=== PATIENT | male | born 1955 | race Caucasian/White ===

== ENCOUNTER 2020-07-21 10:29 | Outpatient (CLI) | payer OTHER, SELFPAY ==
--- NOTE | ~2020-07-21 | XR_ITS ---
EXAMINATION: XR knee RT min 4V DATE: 07/21/2020 10:52 INDICATION: Right knee pain. TECHNIQUE: 4 views of right knee were obtained. COMPARISON: None. FINDINGS: Bone alignment is normal. No fracture. There is mild tricompartmental osteoarthritis charac terized by tiny marginal osteophytes. There is a moderate-sized knee joint effusion. IMPRESSION: 1. Mild right knee osteoarthritis. 2. Moderate-sized right knee joint effusion. Reviewed, dictated and finalized at location B.
--- NOTE | ~2020-07-21 | XR_ITS ---
EXAMINATION: XR ankle RT min 3V DATE: 07/21/2020 10:52 INDICATION: Right ankle pain. TECHNIQUE: 4 views of right ankle were obtained. COMPARISON: None. FINDINGS: Bone alignment is normal. No fracture. Joint spaces are normal. IMPRESSION: 1. Normal right ankle. Reviewed, dictated and finalized at location B. IMPRESSION: 1. Normal right ankle.
== END 2020-07-21 10:30 | disposition home or self-care (01) ==
PROVIDERS: PCP Emergency Medicine; Visit Provider Emergency Medicine
DX: M25.571 Pain in right ankle and joints of right foot (principal); M17.11 Unilateral primary osteoarthritis, right knee; M25.461 Effusion, right knee
CPT/HCPCS: 73564; 73610

== ENCOUNTER 2020-12-18 09:20 | Emergency (ER) | payer OTHER, SELFPAY ==
[2020-12-18 09:31] VITALS: BP 161/74; PULSE 96; RESP 18; TEMP 36.9; O2SAT 99
--- NOTE | 2020-12-18 10:08 | ED.SKABFB ---
HPI - Skin/Abscess/Foreign Bdy General Chief complaint: Skin/Abscess/Foreign Body Stated complaint: Insect Bite Time Seen by Provider: 12/18/20 10:08 Source: patient and RN notes reviewed Mode of arrival: ambulatory Limitations: no limitations History of Present Illness HPI narrative: 65-year-old male presents concern for wound to the right leg. Reports 2 weeks ago he was in some brush in the [place] and felt a pain in that area, he assumed he cut the leg on some brush. He reports the next day he had 3 open areas that were surrounded by a purple bruise like area. Reports bruise-like area is still there and now has redness spreading up towards his knee. He denies malaise, fatigue, chills, body aches, sweats, fever. Reports he has been using antibiotic ointment on the wound. Denies other intervention. Reports he is scheduled to have right knee surgery on Monday complaint: other (Wound) Related Data Home Medications Medication Instructions Recorded Confirmed amlodipine 12/18/20 hydrochlorothiazide 12/18/20 Allergies Allergy/AdvReac Type Severity Reaction Status Date / Time lisinopril Allergy Severe Swelling Verified 12/18/20 09:34 Review of Systems Review of Systems: CONSTITUTIONAL: Denies malaise, chills, sweats, or fever. CARDIOVASCULAR: Denies chest pain, palpitations, or edema. RESPIRATORY: Denies cough or dyspnea. SKIN: Reports wound on the right leg with spreading redness MUSCULOSKELETAL: Denies musculoskeletal pain or myalgia. NEUROLOGIC: Denies numbness, weakness All systems reviewed & are unremarkable except as noted in HPI and below PMFSH Comments At time of signature, agree with nursing past medical, surgical, social and family history. There is no relevant family history pertinent to the presenting complaint Exam Narrative: GENERAL: Well-appearing, well-nourished, and in no acute distress. HEAD: Normocephalic, atraumatic. EYES: PERRLA, conjunctivae clear. ENT: Mucous membranes moist. NECK: Supple. No lymphadenopathy CHEST: Speaks in full sentences. No respiratory distress. HEART: Regular rate and rhythm. SKIN: Warm, dry. 10 cm x 7 cm raised area with a brown lacelike pattern, erythematous lacelike pattern spreading proximally from the wound greater than 40 cm x 20 cm NEURO: Alert and oriented x3. PSYCH: Normal mood and affect Course Course Emergency Course: Patient is aware of, understands and agrees to be transferred to the emergency department. Patient agrees to proceed directly to the emergency department. Portions of this record may have been created with voice recognition software Vital Signs Vital signs: Vital Signs Temperature 98.4 F 12/18/20 09:31 Pulse Rate 96 12/18/20 09:31 Respiratory Rate 18 12/18/20 09:31 Blood Pressure 161/74 H 12/18/20 09:31 Pulse Oximetry 99 12/18/20 09:31 Temperature 98.4 F 12/18/20 09:31 Pulse Rate 96 12/18/20 09:31 Respiratory Rate 18 12/18/20 09:31 Blood Pressure 161/74 H 12/18/20 09:31 Pulse Oximetry 99 12/18/20 09:31 Reviewed. Transfer Transfered to: [facility] Transfer rationale: wound Accepting physician: Tra MDM - Skin/Abscess/Foreign Bdy MDM Narrative Medical decision making narrative: Exam findings warrant further evaluation emergency department; patient is non-toxic appearing and is in no distress. Patient is appropriate for transfer via private Critical Care Time Critical Care Time Critical Care Time: No Discharge Plan Discharge Clinical Impression: Leg wound, right Qualifiers: Encounter type: initial encounter Qualified Code(s): S81.801A - Unspecified open wound, right lower leg, initial encounter Patient Disposition: Acute Care Hospital Condition: Stable Prescriptions: No Action amlodipine 10 mg tablet RF: 0 hydrochlorothiazide 12.5 mg tablet RF: 0 Follow-up/Referrals: Tramaine Rodriguez MD [Primary Care Provider] - Time of Disposition: 10:08
== END 2020-12-18 10:08 | disposition short-term general hospital (02) ==
PROVIDERS: Emergency Provider Nurse Practitioner; PCP Emergency Medicine
DX: S81.801A Unspecified open wound, right lower leg, initial encounter (principal); X58.XXXA Exposure to other specified factors, initial encounter; I10 Essential (primary) hypertension
CPT/HCPCS: 99212; G0463

== ENCOUNTER 2020-12-18 10:26 | Emergency (ER) | payer OTHER, SELFPAY ==
[2020-12-18 10:43] VITALS: BP 162/85; PULSE 104; RESP 16; TEMP 36.8; O2SAT 99
--- NOTE | 2020-12-18 12:25 | ED.GENADULT ---
HPI - General Adult General Chief complaint: Wound/Laceration Stated complaint: right leg wound Time Seen by Provider: 12/18/20 12:24 Source: patient and family Mode of arrival: ambulatory Limitations: no limitations History of Present Illness HPI narrative: Patient was bit by some insect while in the [place] several weeks ago. Shortly after he developed large wound that he treated with alcohol and [id number] antibiotic ointment, it opened up and drained. It is no longer painful and it is healing. In the last several days he developed a mottling of the skin from the wound to mid thigh on the lateral aspect. Is not painful. The wound still itches. He denies any fever or arthralgias. Onset (ago): week(s) Associated symptoms: denies other symptoms Related Data Home Medications Medication Instructions Recorded Confirmed amlodipine 12/18/20 hydrochlorothiazide 12/18/20 Allergies Allergy/AdvReac Type Severity Reaction Status Date / Time lisinopril Allergy Severe Swelling Verified 12/18/20 11:23 Review of Systems Review of Systems: All systems reviewed & are unremarkable except as noted in HPI and below REPLACED BY [facility] Social History Social History (Updated 12/18/20 @ 13:22 by Cherrie Weeks PA-C) Smoking status: Current every day smoker Alcohol intake: current Substance use: never Living arrangements: with family Exam Const: General: no acute distress and alert Orientation/consciousness: patient oriented x3 HENMT: Head: normal to inspection Neck: Neck: no lymphadenopathy Resp: Effort & Inspection: normal respiratory effort Auscultation: clear to auscultation bilaterally Cardio: Rate: regular rate Rhythm: regular rhythm Skin: Lesions: lesion noted (lateral aspect of right LE, healing) Other: Purple Mottling from wound to mid thigh, lateral aspect, non-blanching. Course Course Emergency Course: Renal function is normal, there is small amount of protein and ketones in urine. Discussed with Dr. Dutta discharged with steroids for the inflammation and itching and follow-up with dermatology. Vital Signs Vital signs: Vital Signs Temperature 36.8 C 12/18/20 10:43 Pulse Rate 104 H 12/18/20 10:43 Respiratory Rate 16 12/18/20 10:43 Blood Pressure 162/85 H 12/18/20 10:43 Pulse Oximetry 99 12/18/20 10:43 Temperature 36.8 C 12/18/20 10:43 Pulse Rate 104 H 12/18/20 10:43 Respiratory Rate 16 12/18/20 10:43 Blood Pressure 162/85 H 12/18/20 10:43 Pulse Oximetry 99 12/18/20 10:43 Medical Decision Making Vital Signs Vital Signs: Vital Signs Temperature 36.8 C 12/18/20 10:43 Pulse Rate 104 H 12/18/20 10:43 Respiratory Rate 16 12/18/20 10:43 Blood Pressure 162/85 H 12/18/20 10:43 Pulse Oximetry 99 12/18/20 10:43 Temperature 36.8 C 12/18/20 10:43 Pulse Rate 104 H 12/18/20 10:43 Respiratory Rate 16 12/18/20 10:43 Blood Pressure 162/85 H 12/18/20 10:43 Pulse Oximetry 99 12/18/20 10:43 Lab Data Result diagrams: 12/18/20 13:40 12/18/20 13:40 Labs: Lab Results 12/18/20 12/18/20 12/18/20 Range/Units 13:40 13:40 13:52 WBC 9.4 (4.5-10.0) K/mm3 RBC 5.58 (4.6-6.20) M/mm3 Hgb 18.7 H (14.0-18.0) g/dL Hct 52.9 H (42.0-52.0) % MCV 94.8 (80-100) fl MCH 33.5 (26-34) pg MCHC 35.3 (32-36) g/dl RDW 13.3 (11.5-14.5) % Plt Count 332 (150-375) k/mm3 MPV 8.6 (7.4-10.4) fl Immature Gran % (Auto) 0.6 H (0-0.5) % Neut % (Auto) 68.2 (45.5-73.1) % Lymph % (Auto) 15.6 L (18.3-44.2) % [place] % (Auto) 12.8 H (2.6-8.5) % Eos % (Auto) 2.0 (0-4.4) % Baso % (Auto) 0.8 (0.2-1.2) % Lymph # (Auto) 1.47 (0.9-3.2) K/mm3 [place] # (Auto) 1.2 H (0.1-0.6) K/mm3 Eos # (Auto) 0.2 (0-0.3) K/mm3 Baso # (Auto) 0.1 (0.0-0.1) K/mm3 Abs Immat Gran (auto) 0.06 H (0.00-0.031) K/mm3 Absolute Neuts (auto) 6.4 (1.3-6.7) K/mm3 Absolute Nucle
[2020-12-18 13:56] LABS: Basophils Absolute Auto 0.1 K/mm3 (0.0-0.1); Basophils Percent Auto 0.8 % (0.2-1.2); Eosinophils Absolute Auto 0.2 K/mm3 (0-0.3); Hematocrit 52.9 % (42.0-52.0); Hemoglobin 18.7 g/dL (14.0-18.0); Immature Granulocyte Absolute 0.06 K/mm3 (0.00-0.031); Immature Granulocyte Percent A 0.6 % (0-0.5); Lymphocytes Absolute Auto 1.47 K/mm3 (0.9-3.2); Lymphocytes Percent Auto 15.6 % (18.3-44.2); Mean Corpuscular HGB Conc 35.3 g/dl (32-36); Mean Corpuscular Hemoglobin 33.5 pg (26-34); Mean Corpuscular Volume 94.8 fl (80-100); Mean Platelet Volume 8.6 fl (7.4-10.4); Monocytes Absolute Auto 1.2 K/mm3 (0.1-0.6); Monocytes Percent Auto 12.8 % (2.6-8.5); Neutrophils Absolute Auto 6.4 K/mm3 (1.3-6.7); Neutrophils Percent Auto 68.2 % (45.5-73.1); Platelet Count Result 332 k/mm3 (150-375); Red Blood Count 5.58 M/mm3 (4.6-6.20); Red Cell Distribution Width 13.3 % (11.5-14.5); White Blood Count 9.4 K/mm3 (4.5-10.0)
[2020-12-18 13:58] LABS: Anion Gap 11 mmol/L (8-16); Blood Urea Nitrogen 7 mg/dL (9-20); Calcium 9.6 mg/dL (8.4-10.2); Carbon Dioxide 28 mmol/L (22-30); Chloride 99 mmol/L (98-107); Estimated CRCL calculation 106 ml/min; Estimated Glomerular Filt Rate > 60; Glucose 109 mg/dL (65-110); Potassium 3.6 mmol/L (3.4-5.0); Sodium 138 mmol/L (137-145)
[2020-12-18 14:22] LABS: Add Urine Microscopic? YES; Appearance Urine Clear (Clear); Bilirubin Urine Negative (Negative); Blood Urine Negative (Negative); Color Urine Yellow (Yellow); Glucose Urine UA Negative (Negative); Ketones Urine 1+ mg/dL (Negative); Leukocyte Esterase Ur Negative LEU/UL (Negative); Nitrate Urine Negative (Negative); Protein Urine 1+ mg/dL (Negative); RBC Urine 0-2 /hpf (0-2); Specific Grav Ur 1.012 (1.001-1.035); Urobilinogen Urine Negative mg/dL (<2.0); WBC Urine 0-3 /hpf
[2020-12-18 15:14] VITALS: BP 155/90; PULSE 95; RESP 18; TEMP 36.9; O2SAT 98
== END 2020-12-18 15:16 | disposition home or self-care (01) ==
PROVIDERS: Physician Assistant; Emergency Provider Emergency Medicine; PCP Emergency Medicine
DX: L95.9 Vasculitis limited to the skin, unspecified (principal); S70.361A Insect bite (nonvenomous), right thigh, initial encounter; F17.200 Nicotine dependence, unspecified, uncomplicated; W57.XXXA Bitten or stung by nonvenomous insect and other nonvenomous arthropods, initial encounter
CPT/HCPCS: 36415; 80048; 81001; 85025; 99283

== ENCOUNTER 2021-01-19 11:18 | Outpatient (CLI) | payer OTHER, SELFPAY ==
--- NOTE | ~2021-01-19 | CT_ITS ---
EXAMINATION: CT lung screening DATE: 01/19/2021 11:43 INDICATION: History of tobacco TECHNIQUE: Computed tomography (CT) of the chest was performed without intravenous contrast. The dose -length product was 131.76 mGy-cm. Automated exposure control and iterative reconstruction technique were employed. COMPARISON: None FINDINGS: No thoracic lymphadenopathy. No significant pleural or pericardial effusion. There is ather osclerosis of the aorta fatty infiltration of the liver. Stable 4 mm right upper lobe nodule, image 6 1. There are a few smaller nodules in both lungs. There are subsolid nodules in the left upper lobe, largest measuring 4 mm, image 54. There is a new 5 mm nodule in the superior segment of the right low er lobe, image 54. There are increased number of nodules bilaterally compared with prior examination. There is a 6 mm fissural nodule on the left, image 62. IMPRESSION: 1. Lung-RADS category 3: Probably benign. Further evaluation is recommended with noncontrast low-dose chest CT in 6 months. Reviewed, dictated and finalized at location A. [employer] IMPRESSION: 1. Lung-RADS category 3: Probably benign. Further evaluation is recommended wit h noncontrast low-dose chest CT in 6 months.
== END 2021-01-19 11:19 | disposition home or self-care (01) ==
LOC: ANHIMG 11:22
PROVIDERS: PCP Emergency Medicine; Visit Provider Emergency Medicine
DX: Z12.2 Encounter for screening for malignant neoplasm of respiratory organs (principal); Z87.891 Personal history of nicotine dependence; R91.8 Other nonspecific abnormal finding of lung field
CPT/HCPCS: 71271

== ENCOUNTER 2021-06-07 11:22 | Outpatient (CLI) | payer OTHER, SELFPAY ==
--- NOTE | 2021-06-07 11:32 | ECG_ITS ---
Measurements Intervals [place] Rate: 102 P: 60 [place]: 158 QRS: 29 QRSD: 79 T: 46 QT: 322 QTc: 420 Interpretive Statements SINUS TACHYCARDIA POSSIBLE LEFT ATRIAL ENLARGEMENT [-0.1mV P WAVE IN V1/V2] POSSIBLE SEPTAL MYOCARDIAL INFARCTION OF INDETERMINATE AGE ABNORMAL ECG COMPARED TO ECG 05/18/2018 15:07:26 NO SIGNIFICANT CHANGES Electronically Signed On 06-07-2021 12:31:28 CDT by Pepito No M.D.
[2021-06-07 11:57] LABS: Anion Gap 9 mmol/L (8-16); Blood Urea Nitrogen 7 mg/dL (9-20); Calcium 8.5 mg/dL (8.4-10.2); Carbon Dioxide 25 mmol/L (22-30); Chloride 101 mmol/L (98-107); Estimated Glomerular Filt Rate > 60; Glucose 89 mg/dL (65-110); Potassium 3.8 mmol/L (3.4-5.0); Sodium 135 mmol/L (137-145)
== END 2021-06-07 11:23 | disposition home or self-care (01) ==
LOC: ANHSURGERY 11:25
PROVIDERS: Anesthesiology; PCP Emergency Medicine; Visit Provider Otolaryngology
DX: Z01.818 Encounter for other preprocedural examination (principal); I10 Essential (primary) hypertension; Z79.899 Other long term (current) drug therapy; R94.31 Abnormal electrocardiogram [ECG] [EKG]
CPT/HCPCS: 36415; 80048; 93005

== ENCOUNTER 2021-06-10 01:48 | Day surgery (SDC) | payer OTHER, SELFPAY ==
[2021-06-04 08:31] VITALS: BMI 27.9
--- NOTE | 2021-06-04 08:44 | PC.NURSE ---
Report to the Outpatient Waiting Room, entrance under the green pavilion located off [facility], at time 8:15 on date 06/10/21. OR Time: 10:15. - You and your visitor will be asked a series of questions to screen for COVID 19 for your protection. - A mask is required within the hospital. One visitor will be allowed to accompany the patient into the hospital. Patients visitor will be instructed to remain with patient at all times or leave the building. We will allow the visitor to come back to the postoperative area when patient is ready. Preoperative COVID Testing Requirements: No COVID Test needed if: (proof is required; if not received patient will have Rapid Test prior to entry) - Patient has received COVID Vaccine at least 14 days prior to procedure date or - Patient has positive COVID test result within last 90 days of surgery date. COVID Test needed if above criteria is not met Patients may have clear liquids (water, carbonated beverages, clear teas, apple juice) until 3 hours prior to surgery (7:15) with a maximum of 20 ounces. - No food from midnight until time of surgery Take the following medications with a SIP of water the morning of surgery: AMLODIPINE Medications to discontinue per physician: N/A Date to take last dose: N/A Please no make-up, nail congolese, hairspray, perfume, deodorant, or body powder the day of surgery. No jewelry (including any body piercings) or valuables the day of surgery, leave them at home. Please take a shower or bath the night before, or the morning of, surgery with an antibacterial soap. Wear comfortable, loose fitting clothing. - Jewelry must be removed prior to entering the operating room. Rings and piercings that are not removed may be cut off. - The hospital will not accept responsibility for valuables. - Please leave all valuables, including medications, at home the day of surgery. If you are going home after surgery, a licensed courier delivery driver must drive you home. - NO public transportation without another adult. - We recommend that an adult stay with you for 24 hours following discharge. - We also recommend that you do not drive, make important decision, drink alcoholic beverages, or take any drugs that were not prescribed by your health care provider for at least 24 hours after your discharge time. Follow any additional instructions given to you from your surgeon. Telephone instructions given to PASHA VAUGHAN and asked if any additional questions and then verbalized understanding. Patient advised to call surgeon office or pre surgery nurse liaison [phone] if any additional questions.
--- NOTE | 2021-06-08 06:23 | PM.HPGS ---
History of Present Illness History of Present Illness Consent: Risks, benefits, and alternatives have been discussed and questions answered. Patient agrees to proceed with procedure. 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 Review of Systems Review of Systems: All systems reviewed & are unremarkable except as noted in HPI and below PMFSH Social History Social History Smoking packs per day: 0.5 Smoking cigarettes per day: 10.0 Years smoked: 50 Smoking pack-years: 25.00 Smoking status: Current every day smoker Tobacco type: cigarettes Alcohol intake: current Drinks per week: 18 Alcohol use details: BEER Substance use: never Substance use type: does not use Additional living arrangements comments: MOM Spiritual care concerns: No Comments medical social family history unremarkable Meds Home Medications and Allergies Home Medications Medication Instructions Recorded Confirmed Type amlodipine 10 mg PO DAILY 12/18/20 06/04/21 History hydrochlorothiazide 12.5 mg PO DAILY 12/18/20 06/04/21 History Allergies Allergy/AdvReac Type Severity Reaction Status Date / Time lisinopril Allergy Severe Swelling Verified 06/04/21 08:30
--- NOTE | 2021-06-08 06:24 | PM.HPGS ---
History of Present Illness History of Present Illness Consent: Risks, benefits, and alternatives have been discussed and questions answered. Patient agrees to proceed with procedure. Chief complaint: Right Side Tongue Lesion Narrative: Sumanth Brumfield is a 65 year old male with an area between 2 and 3 cm leukoplakia right lateral tongue PMFSH Social History Social History Smoking packs per day: 0.5 Smoking cigarettes per day: 10.0 Years smoked: 50 Smoking pack-years: 25.00 Smoking status: Current every day smoker Tobacco type: cigarettes Alcohol intake: current Drinks per week: 18 Alcohol use details: BEER Substance use: never Substance use type: does not use Additional living arrangements comments: MOM Spiritual care concerns: No Meds Home Medications and Allergies Home Medications Medication Instructions Recorded Confirmed Type amlodipine 10 mg PO DAILY 12/18/20 06/04/21 History hydrochlorothiazide 12.5 mg PO DAILY 12/18/20 06/04/21 History Allergies Allergy/AdvReac Type Severity Reaction Status Date / Time lisinopril Allergy Severe Swelling Verified 06/04/21 08:30 Exam Narrative: chest clear heart no murmurs abdomen soft extremities -2-3 3 cm leukoplakia lesion right lateral tongue Assessment and Plan Additional Plan plan is excision the area of leukoplakia right lateral tongue
--- NOTE | 2021-06-09 15:11 | P.PNAN_ITS ---
Anes - Initial Pre Proc Eval Procedure: Operation Date: 06/10/21 10:15 Proposed Procedures p Excision Lesion Tongue Right Side - Emanuel Goodman MD Date/Time: 06/09/21 15:11 Surgeon: Emanuel Goodman MD Pre Op Diagnosis: Right Side Tongue Lesion Patient Data Age: 65 Gender: M Height: 1.78 m Weight: 88.45 kg Allergies Allergy/AdvReac Type Severity Reaction Status Date / Time lisinopril Allergy Severe Swelling Verified 06/10/21 08:27 Home Medications Medication Instructions Recorded Confirmed Type amlodipine 10 mg PO DAILY 12/18/20 06/10/21 History hydrochlorothiazide 12.5 mg PO DAILY 12/18/20 06/10/21 History Patient hx anesthesia problems: none Family hx anesthesia problems: none Results Review: All pre-operative results and documents have been reviewed as p art of the pre-operative evaluation. PMFSH Past Medical History Medical History Arthritis ETOH abuse HTN (hypertension) Leukoplakia, tongue Smoker Social History Social History Smoking packs per day: 0.5 Smoking cigarettes per day: 10.0 Years smoked: 50 Smoking pack-years: 25.00 Smoking status: Current every day smoker Tobacco type: cigarettes Alcohol intake: current Drinks per week: 18 Alcohol use details: BEER Substance use: never Substance use type: does not use Living arrangements: with family Additional living arrangements comments: MOM Spiritual care concerns: No Anes - Eval Final PreProcedure Day of Procedure 06/09/21 15:11 Patient weight: overweight Heart: regular rate and rhythm Lungs: clear to auscultation and normal air movement Airway: Mallampati scale class II Neurological: alert and oriented Last oral intake: >/= 8 hours ASA classification: III Emergent: no Anesthetic plan: proceed Anesthesia type and monitoring: general LMA and ETT Results Review: All pre-operative results and documents have been reviewed as part of the pre-operative evaluation. Informed Consent: The patient's anesthetic plan and its attendant risks and benefits were discussed with the patient/family/POA. Questions were solicited and answers provided to the satisfaction of the patient/family/POA.
--- NOTE | 2021-06-10 06:14 | WPDHPUPDATE1 ---
History and Physical Update Update Date/Time: 06/10/21 06:14 History and Physical has been reviewed, including an updated exam of the patient. There are NO changes in the patient's condition. Risks, benefits, and alternatives have been discussed and questions answered. Patient agrees to proceed with procedure.
[2021-06-10 08:50] VITALS: BP 139/76; PULSE 92; RESP 16; TEMP 37.4; O2SAT 98
[2021-06-10] MEDS: LACTATED RINGERS 1,000 ML 30 ML IV CONT (08:50)
[2021-06-10] MEDS: LIDO 1%/EPINEPHRINE/PF 1:200,000 30 ML VIAL 10 ML XX (10:41)
--- NOTE | 2021-06-10 10:42 | W.PM.PROC2 ---
Procedure Note - Detailed Date of Procedure 06/15/21 Pre-op Diagnosis Right Side Tongue Lesion Post-op Diagnosis Same Procedure Performed Excision right side tongue lesion Surgeon Emanuel Goodman MD Description of Procedure Patient prepped general general anesthesia the area was injected xylocaine with adrenaline elliptically excised and closed and then the base cauterized
--- NOTE | 2021-06-10 10:44 | W.PM.PROC2 ---
Procedure Note - Detailed Date of Procedure 06/10/21 Pre-op Diagnosis Right Side Tongue Lesion Post-op Diagnosis Same Procedure Performed Excision leukoplakia lesion right tongue Surgeon Emanuel Goodman MD Description of Procedure Patient prepped general anesthesia an area of leukoplakia in the right lateral tongue was injected xylocaine with adrenaline the lip look inside elliptically it excised and the base cauterized sent for pathologic examination
[2021-06-10 10:49] VITALS: BP 145/85; PULSE 84; RESP 16; TEMP 36.7; O2SAT 95
[2021-06-10 11:05] VITALS: BP 131/78; PULSE 82; RESP 20; O2SAT 100
--- NOTE | 2021-06-10 11:10 | SUR.PHASEI ---
1110: Simple mask removed.
[2021-06-10 11:20] VITALS: BP 142/78; PULSE 84; RESP 16; O2SAT 96
[2021-06-10 11:30] VITALS: BP 152/88; PULSE 85; RESP 16
[2021-06-10 11:45] VITALS: BP 155/75; PULSE 81; RESP 16
== END 2021-06-10 12:00 | disposition home or self-care (01) ==
PROVIDERS: PCP Emergency Medicine; Visit Provider Otolaryngology
PROC: (CPT 41110; principal; 2021-06-10 10:15)
DX: K14.8 Other diseases of tongue (principal); I10 Essential (primary) hypertension; F17.210 Nicotine dependence, cigarettes, uncomplicated
CPT/HCPCS: 41110; 88304; 88305; J0330; J1100; J2250; J2405; J2704; J3010; J7120

== ENCOUNTER 2022-04-12 17:56 | Emergency (ER) | payer MEDICARE, MEDICAID, SELFPAY ==
--- NOTE | ~2022-04-12 | XR_ITS ---
EXAM: XR hip RT min 2V DATE: 04/12/2022 19:24 HISTORY: fell on ice . COMPARISON: None available. FINDINGS: Normal mineralization. Lucency in the right superior pubic ramus, possibly extending into the medial acetabular wall. No lytic or blastic lesion. Right hip osteoarthritis. No erosion or perio steal change. Atherosclerotic arterial calcification. Pelvic phleboliths. IMPRESSION: Possible nondisplaced right superior pubic ramus fracture, consider CT of the pelvis for further evaluation. Reviewed, dictated and finalized at location K. [employer]
--- NOTE | ~2022-04-12 | CT_ITS ---
EXAMINATION: CT pelvis wo con DATE: 04/12/2022 19:58 INDICATION: Hip injury. Possible fracture and prior radiograph. TECHNIQUE: Computed tomography (CT) of the pelvis was performed without intravenous contrast. Automat ed exposure control and iterative reconstruction technique were employed. The dose-length product was 527.91 mGy-cm. COMPARISON: X-ray right hip, same date FINDINGS: Nondisplaced fracture of the right superior pubic ramus. No other fracture detected. No dis location. No SI joint or pubic symphysis diastases. Lumbar degenerative disc disease. Hepatic steatos is. Atherosclerotic arterial calcification. Bladder wall thickening, likely secondary to outlet compr omise from prostatomegaly. Uncomplicated fat-containing bilateral inguinal hernias. IMPRESSION: Nondisplaced fracture of the right superior pubic ramus. Reviewed, dictated and finalized at location K. ATION TRAINER
[2022-04-12 18:33] VITALS: BP 177/73; PULSE 96; RESP 16; TEMP 37.2; O2SAT 96
--- NOTE | 2022-04-12 19:51 | ED.LOWEXIN ---
HPI - Extremity Injury (Lower) General Chief Complaint: Extremity Injury, Lower Stated Complaint: right hip pain Time Seen by Provider: 04/12/22 18:11 History of Present Illness HPI Narrative: 66-year-old male history of hypertension and right knee arthritis presents to the emergency room for evaluation of right hip pain. Patient states that he slipped and fell on the ice just prior to arrival landing on his right hip include. Patient states he is able to ambulate but with pain. Related Data Home Medications Medication Instructions Recorded Confirmed amlodipine 10 mg tablet 10 mg PO DAILY 12/18/20 06/17/21 hydrochlorothiazide 12.5 mg tablet 12.5 mg PO DAILY 12/18/20 06/17/21 Allergies Allergy/AdvReac Type Severity Reaction Status Date / Time lisinopril Allergy Severe Swelling Verified 04/12/22 19:50 Review of Systems Review of Systems: CONSTITUTIONAL: Denies fever, chills, or sweats. EYES: Denies visual changes, redness, or discharge. ENT: Denies rhinorrhea, congestion, sore throat, or otalgia. CARDIOVASCULAR: Denies chest pain, palpitations, or edema. RESPIRATORY: Denies cough or dyspnea. GASTROINTESTINAL: Denies abdominal pain, nausea, vomiting, or diarrhea. GENITOURINARY: Denies dysuria or hematuria. SKIN: Denies rash or itching. MUSCULOSKELETAL: Reports right hip pain NEUROLOGIC: Denies headache, numbness, dizziness, or weakness. PSYCHIATRIC: Denies anxiety or depression. [facility] Past Medical History Medical History Arthritis ETOH abuse HTN (hypertension) Leukoplakia, tongue Smoker Social History Social History Smoking packs per day: 0.5 Smoking cigarettes per day: 10.0 Years smoked: 50 Smoking pack-years: 25.00 Smoking status: Current every day smoker Tobacco type: cigarettes Alcohol intake: current Drinks per week: 18 Alcohol use details: BEER Substance use: never Substance use type: does not use Living arrangements: with family Additional living arrangements comments: MOM Spiritual care concerns: No Exam Narrative: GENERAL: Well-appearing, well-nourished, no physical limitations, and in no acute distress. HEAD: Normocephalic, atraumatic. EYES: Conjunctivae normal, PERRLA and EOMI. CHEST: Clear to auscultation. No respiratory distress. No wheezes rales or rhonchi. No tenderness. HEART: Regular rate and rhythm. No murmur heard. Normal peripheral pulses. ABDOMEN: Soft, nontender, nondistended, normal active bowel sounds. BACK: No cervical/thoracic/lumbar tenderness, step-offs, bony abnormality; FROM EXTREMITIES: RT hip: +TTP extending from gluteal region anteriorly to groin. FROM with pain to right hip, neurovascular is intact distally SKIN: Warm, dry, no rash. No noted wounds NEURO: No focal deficits. Alert and oriented x3. MAEW. CN's II-XI intact bilaterally, normal gait PSYCH: Cooperative. Normal mood and affect. Course Vital Signs Vital signs: Vital Signs Temperature 37.2 C 04/12/22 18:33 Pulse Rate 96 04/12/22 18:33 Respiratory Rate 16 04/12/22 18:33 Blood Pressure 177/73 H 04/12/22 18:33 Pulse Oximetry 96 04/12/22 18:33 Temperature 37.2 C 04/12/22 18:33 Pulse Rate 96 04/12/22 18:33 Respiratory Rate 16 04/12/22 18:33 Blood Pressure 177/73 H 04/12/22 18:33 Pulse Oximetry 96 04/12/22 18:33 MDM - Extremity Injury (Lower) Imaging Data Radiologist's impression: Impressions Hip X-Ray 04/12/22 19:26 IMPRESSION: Possible nondisplaced right superior pubic ramus fracture, consider CT of the pelvis for further evaluation. Pelvis CT 04/12/22 20:24 IMPRESSION: Nondisplaced fracture of the right superior pubic ramus. Discharge Plan Discharge Clinical Impression: Fracture of pubic ramus Patient Disposition: Home, Self-Care Condition: Stable Instructions: Antibiotic Form, Pelvic Fracture (ED) Prescriptions: New hydrocodone-a
[2022-04-12] MEDS: KETOROLAC (*BKC) 60 MG/2 ML VIAL IM (20:06)
[2022-04-12] MEDS: HYDROcodone/acetaminophen (*CRX) 5-325 MG TABLET 1 TAB PO (20:06)
[2022-04-12 20:53] VITALS: BP 147/93; PULSE 78; RESP 19; O2SAT 99
== END 2022-04-12 21:04 | disposition home or self-care (01) ==
PROVIDERS: Emergency Provider Nurse Practitioner Family; PCP Emergency Medicine
DX: S32.591A Other specified fracture of right pubis, initial encounter for closed fracture (principal); I10 Essential (primary) hypertension; M17.11 Unilateral primary osteoarthritis, right knee; F17.210 Nicotine dependence, cigarettes, uncomplicated; W00.0XXA Fall on same level due to ice and snow, initial encounter
CPT/HCPCS: 72192; 73502; 96372; 99284; A9270; J1885

== ENCOUNTER 2024-10-14 14:30 | Emergency (ER) | payer MEDICARE, SELFPAY ==
[2024-10-14 14:35] VITALS: BP 155/78; PULSE 109; RESP 16; TEMP 36.9; O2SAT 97
--- OUTSIDE RECORDS SUMMARY | 2024-10-14 14:41 | XMS_ITS | Clinical Summary ---
Author Organization [facility] Address [address] [place] [address] Care Team Providers Care Manager Test Name Role Phone Tramaine Rodriguez MD Primary Care Provider [phone] Allergies Active Allergy Reactions Criticality Noted Date Comments Lisinopril Swelling High 09/04/2019 Medications amLODIPine (NORVASC) 10 mg tablet Take 1 tablet (10 mg total) by mouth daily 1 Active hydroCHLOROthiazi de (HYDRODIURIL) 12.5 mg tablet Take 1 tablet (12.5 mg total) by mouth daily 0 Active valACYclovir (VALTREX) 1 gram tablet 2 Active budesonide-formot Kenyatta (Symbicort) 80-4.5 mcg/actuation inhalerIndication s:Mild intermittent asthma without complication Inhale 2 puffs 2 (two) times a day as needed (coughing, wheezing, shortness of breath) Rinse mouth with water after use. Do not swallow. 1 each 2 2 Active aspirin 81 mg enteric coated tablet Take 1 tablet (81 mg total) by mouth daily Active ketoconazole (NIZORAL) 2 % cream Apply topically 2 (two) times a day 3 Active triamcinolone (KENALOG) 0.1 % cream Apply topically 2 (two) times a day 3 Active ergocalciferol (VITAMIN D) 50,000 unit capsule TAKE 1 CAPSULE BY MOUTH WEEKLY 4 Active atorvastatin (LIPITOR) 10 mg tablet 4 Active fenofibrate micronized (LOFIBRA) 134 mg capsule 5 Active montelukast (SINGULAIR) 10 mg tabletIndications :Non-seasonal allergic rhinitis due to other allergic trigger TAKE 1 TABLET(10 MG) BY MOUTH EVERY NIGHT 90 tablet 2 5 Active Active Problems Problem Noted Date Diagnosed Date Primary osteoarthritis of both knees 09/21/2022 Assessment & Plan (08/26/2024 2:17 PM CDT): We discussed treatment options today and will move forward with repeat cortisone injection today. He tolerated the procedure well, see procedure note. He will follow up in 3 months for repeat evaluation. He expressed understanding and agreement with the plan. Erythrocytosis 08/27/2021 Derangement of anterior horn of medial meniscus due to old tear 12/08/2020 Overview (12/08/2020): Added automatically from request for surgery [id number] Derangement of lateral meniscus of right knee Overview (12/08/2020): Added automatically from request for surgery [id number] Primary osteoarthritis of right knee 12/08/2020 Overview (12/08/2020): Added automatically from request for surgery [id number] Abnormal finding on lung imaging 09/04/2019 Environmental and seasonal allergies 09/04/2019 Abnormal EKG 01/23/2019 Tobacco dependence syndrome 01/23/2019 Hypertension 01/23/2019 Knee pain 01/23/2019 Solitary pulmonary nodule 01/23/2019 Encounters Date Type Department Care Team Description 10/03/2024 Telephone [facility] Pulmonology [address] [place] [address] Pop Cruz MD 08/26/2024 1:45 PM CDT Office Visit [facility] Orthopedics and Sports Medicine [address] [place] [address] Kim Schmitt, PA Primary osteoarthritis of both knees (Primary Dx) from Last 3 Months Surgical History Surgery Date Site/Laterality Comments KNEE SURGERY Left 1981 BACK SURGERY 03/13/1997 - 03/12/1998 discectomy SINUS SURGERY 03/13/2018 - 03/12/2019 CARDIOVASCULAR STRESS TEST 03/13/2018 - 03/12/2019 negative states patient KNEE ARTHROSCOPY 01/04/2021 Right KNEE ARTHROSCOPY W/ LATERAL RELEASE 2020 SPINE SURGERY 1997 Medical History Medical History Date Comments Hypertension MEDICATION Eczema History of rib fracture X6 Eczema Spider bite recent surgery c ancelled am of sugery due to spider bite on rt lower leg, bruising purplish color from ankle to knee is healing, slightly itchy, but is not open & healing well since 5 days of steroids. Wears glasses uses cheters for reading Teeth missing due to caries amari ral missing teeth Arthritis back, hands, kne es Torn meniscus right, feels pop ping in & out pt states, denies pain Family History Medical History Relation Name Comments Brain cancer Father Diabetes Sister 1 Denita sister Diabetes Sister 2 Alicia Relation Name Status Comments Father Sister 1 Denita sister Sister 2 Alicia Social History Tobacco Use Types Packs/Day Years Used Date Smoking Tobacco: Every Day Cigarettes 0.8 50 Smokeless Tobacco: Never Tobacco Cessation:Ready to Q uit: Not Asked; Counseling Given: Not Answered AUDIT-C Answer Date Recorded Q1: How often do you have a drink containing alc ohol? 2-3 times a week 09/26/2022 Q2: How many drinks containi ng alcohol do you have on a typical day when you are drinking? 3 or 4 09/26/2022 Q3: How often do you have si x or more drinks on one occasion? 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 Gender Identity Male 07/05/2021 11:46 AM CDT Sexual Orientation Straight 07/05/2021 11 :46 AM CDT Obstetrics History Last Filed Vital Signs Vital Sign Reading Time Taken Comments Blood Pressure 134/73 10/02/2023 3:14 PM CDT Pulse 100 10/02/2023 3:14 PM CDT Temperature 37.1 C (98.7 F) 10/02/2023 3:14 PM CDT Respiratory Rate 18 10/02/2023 3:14 PM CDT Oxygen Saturation 95% 10/02/2023 3:14 PM CDT Inhaled Oxygen Concentration - - Weight 95.3 kg (210 lb) 05/21/2024 2:14 PM CDT Height 175.3 cm (5' 9.02) 05/21/2024 2:14 PM CD T Body Mass Index 31 05/21/2024 2:14 PM CDT Plan of Treatment Health Maintenance Due Date Last Done Comments Colon Cancer Screening-Colonoscopy 1955 Depression Screening 1955 Hepatitis C Screening 1955 Prostate Cancer Screening-PSA 1956 DTaP/Tdap/Td Vaccine (1 - Tdap) 07/13/1967 Hepatitis B Screening 1974 Pneumococcal vaccine 65+ (1 of 2 - PCV) 07/13/1975 Zoster Vaccine (1 of 2) 2006 Abdominal Aortic Aneurysm (AAA) Screen 2021 Well Visit 65+ 2021 Fall Risk Assessment 12/25/2021 12/25/2020 Covid-19 Vaccine (2 - season) 11/12/202311/2020 Lung Cancer Screening 09/29/2024 09/29/2023, 023 Influenza Vaccine (#1) 2024 Procedures Procedure Name Priority Date/Time Associated Diagnosis Comments CA ARTHROCENTESIS ASPIR&/INJ MAJOR JT/BURSA W/O US Routine 08/26/2024 1:45 PM CDT Primary osteoarthritis of both knees CA ARTHROCENTESIS ASPIR&/INJ MAJOR JT/BURSA W/O US Routine 08/26/2024 1:45 PM CDT Primary osteoarthritis of both knees CT LUNG CANCER SCREENING Schedule Routine, Read Routine (OP Routine) 09/29/2023 2:59 PM CDT Cigarette nicotine dependence without complication from Last 3 Months or Most Recently Relevant to Health Maintenance Results * CA ARTHROCENTESIS ASPIR&/INJ MAJOR JT/BURSA W/O US (08/26/2024 1:45 PM CDT) Narrative Kim Schmitt PA - 08/26/2024 1:45 PM CDT Kim Schmitt PA 08/26/2024 2:17 PM Large Joint (Hip, Knee, Shoulder) Injection: L knee Performed by: Kim Schmitt PA Authorized by: Kim Schmitt PA Large Joint Injection/Aspiration: Consent Given by: Patient Site marked: the procedure site was marked Verbal consent obtained: Yes Supporting Documentation: Indications: Pain Procedure Details: Location: Knee Site: L knee Prep: patient was prepped using a clean technique Approach: Lateral Ultrasound guided: No Fluroscopic guidance: No Medications: 40 mg triamcinolone 40 mg/mL; 2 mL lidocaine 10 mg/mL (1 %) Patient tolerance: Patient tolerated the procedure well with no immediate complications us Kim WRIGHT IN CLINIC/BEDSIDE ORDERABL ES Final Result * CA ARTHROCENTESIS ASPIR&/INJ MAJOR JT/BURSA W/O US (08/26/2024 1:45 PM CDT) Narrative Kim Schmitt PA - 08/26/2024 1:45 PM CDT Kim Schmitt PA 08/26/2024 2:17 PM Large Joint (Hip, Knee, Shoulder) Injection: R knee Performed by: Kim Schmitt PA Authorized by: Kim Schmitt PA Large Joint Injection/Aspiration: Consent Given by: Patient Site marked: the procedure site was marked Verbal consent obtained: Yes Supporting Documentation: Indications: Pain Procedure Details: Location: Knee Site: R knee Prep: patient was prepped using a clean technique Approach: Lateral Ultrasound guided: No Fluroscopic guidance: No Medications: 40 mg triamcinolone 40 mg/mL; 2 mL lidocaine 10 mg/mL (1 %) Patient tolerance: Patient tolerated the procedure well with no immediate complications us Kim WRIGHT IN CLINIC/BEDSIDE ORDERABL ES Final Result * CT Lung Cancer Screening (09/29/2023 2:59 PM CDT) Anatomical Region Laterality Modality Chest N/A Computed Tomogra phy 10/02/2023 2:14 PM CDT Narrative 10/02/2023 2:21 PM CDT EXAM DESCRIPTION: CT LUNG CANCER SCREENING REASON FOR STUDY: Screening CT of the chest in a current smoker with a 42 pack year smoking history. Additional history: None. TECHNIQUE: Low dose CT scan of the chest was performed without intravenous contrast using helical scanning technique. The exam extends from the lung apices through the lung bases. Automatic exposure control was used as a dose optimization technique. NOTE: This study was performed for the specific purposes of lung cancer screening and is not an alternative to diagnostic chest CT. RADIATION DOSE: CT dose index volume (CTDIvol) = 2.19 mGy COMPARISON: 08/22/2022 FINDINGS: SMOKING RELATED LUNG DISEASE: There are mild emphysematous changes of lungs with scattered mild subsegmental atelectasis and scarring. There is mild biapical pleural thickening and scarring. There is no definite evidence of a pneumothorax. The central airways are grossly patent. There is no definite evidence of a focal consolidation or pleural effusion. There is a small calcified granuloma noted in the right upper lobe. LUNG NODULES: There is a stable elongated fissural nodule along the left major fissure measuring 0.6 cm (axial image 152). There is a stable 0.4 cm left lower lobe pulmonary nodule abutting the left major fissure (axial image 154). CORONARY ARTERY CALCIFICATION: Present. OTHER: The heart size is stable. There is a small amount of pericardial fluid noted, which may be physiologic. There are atherosclerotic changes of the coronary vessels. There are mild atherosclerotic changes of the thoracic aorta. There is no definite unenhanced CT evidence of mediastinal, hilar, or axillary lymphadenopathy. There are grossly stable scattered prominent subcentimeter mediastinal lymph nodes noted with largest measuring 0.9 cm in the subcarinal region (axial image 151). There is a small hiatal hernia. The bilateral adrenal glands are grossly stable and unremarkable. There is diffuse hepatic steatosis. There is mild osteopenia. There is a minimal to mild S shaped scoliotic curvature of the spine with degenerative changes. There is a stable mild chronic compression deformity involving L1. IMPRESSION: Redemonstration of a couple of small pulmonary nodules with the largest measuring 0.6 cm along the left major fissure. No definite evidence of a new suspicious pulmonary nodule. Mild emphysematous changes of lungs with scattered mild subsegmental atelectasis and scarring. Diffuse hepatic steatosis. Lung-RADS category 2: Benign appearance or behavior. Recommendation: Low dose Screening CT of chest in 12 months. THIS IS AN ELECTRONICALLY VERIFIED FINAL REPORT 10/02/2023 2:21 PM - Electronically signed by Magalys RAMIREZ T: Report ID: [id number] Reading Location: [id number] Procedure Note Kelsey Magalys John, DO - 10/02/2023 EXAM DESCRIPTION: CT LUNG CANCER SCREENING REASON FOR STUDY: Screening CT of the chest in a current smoker with a42 pack year smoking history. Additional history: None. TECHNIQUE: Low dose CT scan of the chest was performed without intravenous contrast using helical scanning technique. The exam extends from the lung apices through the lung bases. Automatic exposure control was used as adose optimization technique. NOTE: This study was performed for the specific purposes of lung cancer screening and is not an alternative to diagnostic chest CT. RADIATION DOSE: CT dose index volume (CTDIvol) = 2.19 mGy COMPARISON: 08/22/2022 FINDINGS: SMOKING RELATED LUNG DISEASE: There are mild emphysematouschanges of lungs with scattered mild subsegmental atelectasis and scarring. Thereis mild biapical pleural thickening and scarring. There is no definiteevidence of a pneumothorax. The central airways are grossly patent. There is no definite evidence of a focal consolidation or pleural effusion. There sybil small calcified granuloma noted in the right upper lobe. LUNG NODULES: There is a stable elongated fissural nodule along the left major fissure measuring 0.6 cm (axial image 152). There is a stable 0.4cm left lower lobe pulmonary nodule abutting the left major fissure (axialimage 154). CORONARY ARTERY CALCIFICATION: Present. OTHER: The heart size is stable. There is a small amount of pericardial fluid noted, which may be physiologic. There are atherosclerotic changesof the coronary vessels. There are mild atherosclerotic changes of thethoracic aorta. There is no definite unenhanced CT evidence of mediastinal, hilar, oraxillary lymphadenopathy. There are grossly stable scattered prominentsubcentimeter mediastinal lymph nodes noted with largest measuring 0.9 cm in thesubcarinal region (axial image 151). There is a small hiatal hernia. The bilateral adrenal glands are grossly stable and unremarkable. There is diffuse hepatic steatosis. There is mild osteopenia. There is a minimal to mild S shaped scoliotic curvature of the spine with degenerative changes. There is a stable mild chronic compression deformity involving L1. IMPRESSION: Redemonstration of a couple of small pulmonary nodules with the largest measuring 0.6 cm along the left major fissure. No definite evidence of anew suspicious pulmonary nodule. Mild emphysematous changes of lungs with scattered mild subsegmental atelectasis and scarring. Diffuse hepatic steatosis. Lung-RADS category 2: Benign appearance or behavior. Recommendation: Low dose Screening CT of chest in 12 months. THIS IS AN ELECTRONICALLY VERIFIED FINAL REPORT 10/02/2023 2:21 PM - Electronically signed by Magalys Cole D.O. PS T: Report ID: [id number] Reading Location: [place] [address] Pop Cruz MD IMG CT PROCEDURES Final Resul t from Last 3 Months or Most Recently Relevant to Health Maintenance Insurance [facility] MEDICARE [facility] MEDICARE Care Teams Manager Test Relationship Specialty Start Date End Date Tramaine Rodriguez MD PCP - General Emergency Medicine 07/22/20
--- OUTSIDE RECORDS SUMMARY | 2024-10-14 14:41 | XMS_ITS | Clinical Summary ---
Author Organization [facility] Address [address] [place] [id number] Care Team Providers Care Boilermaker Assembly And Erection Name Role Phone Tramaine Rodriguez MD Primary Care Provider [phone] Allergies Active Allergy Reactions Criticality Noted Date Comments Lisinopril Swelling High 09/04/2019 Medications hydroCHLOROthiaz alberto 12.5 MG tablet 08/07/2019 Active polyethylene glycol-electroly savita 420 g solution TK UTD BY OFFICE 10/04/2018 Active promethazine 25 MG tablet TK 1/2 T PO Q 6 H 10/04/2018 Active erythromycin 5 MG/GM (0.5%) ophthalmic ointment ROXANA AEY Q 4 H 11/22/2018 Active vitamin D2, ergocalciferol, 15392 UNITS capsule TK 1 C PO WEEKLY 09/06/2018 Active cephALEXin 500 MG capsule 09/02/2019 Active amLODIPine 10 MG tablet 08/25/2019 Active Active Problems Problem Noted Date Diagnosed Date Multiple lung nodules 09/04/2019 Cigarette nicotine dependenc e with nicotine-induced disorder 09/04/2019 Environmental and seasonal allergies 09/04/2019 Abnormal finding on lung imaging 09/04/2019 Family History Medical History Relation Comments Emphysema Father Relation Status Comments Father Social History Tobacco Use Types Packs/Day Years Used Date Smoking Tobacco: Every Day Cigarettes 0.5 40 Smokeless Tobacco: Former Alcohol Use Standard Drinks/Week Comments Yes 0 (1 standard drink = 0.6 oz pur e alcohol) AUDIT-C Answer Date Recorded Frequency of Alcohol Consumption Monthly or less 09/04/2019 Average Number of Drinks Not on file 020 Frequency of Binge Drinking Not on file 08/12 Sex and Gender Information Value Date Recorded Sex Assigned at Not on file Legal Sex Male 1:02 PM CDT Gender Identity Not on file Sexual Orientation Not on file Last Filed Vital Signs Vital Sign Reading Time Taken Comments Blood Pressure 145/84 09/04/2019 7:30 AM CDT Pulse 99 09/04/2019 7:30 AM CDT Temperature 36.9 C (98.4 F) 09/04/2019 7:30 AM CDT Respiratory Rate 16 09/04/2019 7:30 AM CDT Oxygen Saturation 100% 09/04/2019 7:30 AM CDT RA Inhaled Oxygen Concentration - - Weight 78 kg (172 lb) 09/04/2019 7:30 AM CDT Height - - Body Mass Index - - Plan of Treatment Health Maintenance Due Date Last Done Comments Colorectal Cancer Screening Colonoscopy (10 Years) 1956 Hepatitis C 1974 DTaP, Tdap and Td Vaccines ( 1 - Tdap) 07/13/1975 Pneumococcal Vaccine: 50+ Ye ars (1 of 2 - PCV) 07/13/1975 Zoster Vaccines (1 of 2) 2006 COVID-19 Vaccine ( - 2023-2 5 season) 2023 RSV Immunization or 60+ Years (1 - 1-dose 75+ series) 07/13/2031 Meningococcal B Vaccine Aged Out No l onger eligible based on patient's age to complete this topic Meningococcal Vaccine Aged Out No vikash matias eligible based on patient's age to complete this topic RSV Immunizations Under 20 Months Aged Out No longer eligible based on patient's age to complete this topic Insurance Care Teams [employer]il[employer] Relationship Specialty Start Date End Date Tramaine Rodriguez MD [facility] [address] [address] PCP - General FAMILY PRACTICE 05/08/19
--- OUTSIDE RECORDS SUMMARY | 2024-10-14 14:41 | XMS_ITS | Clinical Summary ---
Author Organization [facility] Address [address] [place] [address] Care Team Providers Care Collection Officer Name Role Phone Unavailable Primary Care Provider Unavailabl e Allergies Active Allergy Reactions Criticality Noted Date Comments Lisinopril Swelling High 01/23/2019 Medications amLODIPine (NORVASC) 10 mg tablet 2 Active ergocalciferol (VITAMIN D2) 50,000 unit capsule TAKE 1 CAPSULE BY MOUTH WEEKLY 2 Active gabapentin (NEURONTIN) 100 mg capsule 2 Active hydroCHLOROthia zide (HYDRODIURIL) 12.5 mg tablet 2 Active montelukast (SINGULAIR) 10 mg tablet 2 Active Symbicort 80-4.5 mcg/actuation HFA Aerosol Inhaler INHALE 2 PUFFS BY MOUTH TWICE DAILY NEEDED FOR COUGHING OR WHEEZING OR SHORTNESS OF BREATH. RINSE MOUTH WITH WATER AFTER USE. DO NOT SWALLOW 2 Active valACYclovir (VALTREX) 1 gram tablet 2 Active cholecalciferol , vitamin D3, 1,000 unit VITAMIN D TABLET 0 Active cephALEXin (KEFLEX) 500 mg capsule 0 Active Active Problems Problem Noted Date Diagnosed Date Erythrocytosis 08/27/2021 Family History Medical History Relation Name Comments Brain Cancer Father Heart Disease Father Relation Name Status Comments Daughter Alive Father Mother Alive Sister 1 Alive Sister 2 Alive Sister 3 Alive Son 1 Alive Son 2 Alive Son 3 Alive Social History Tobacco Use Types Packs/Day Years Used Date Smoking Tobacco: Every Day Cigarettes Smokeless Tobacco: Never Alcohol Use Standard Drinks/Week Comments Yes 0 (1 standard drink = 0.6 oz pur e alcohol) Sex and Gender Information Value Date Recorded Sex Assigned at Not on file Legal Sex Male 12:02 PM CDT Gender Identity Not on file Sexual Orientation Not on file Last Filed Vital Signs Vital Sign Reading Time Taken Comments Blood Pressure 147/83 10/18/2021 1:15 PM CDT Pulse 94 10/18/2021 1:15 PM CDT Temperature 37.1 C (98.8 F) 10/18/2021 1:15 PM CDT Respiratory Rate - - Oxygen Saturation 95% 10/18/2021 1:15 PM CDT Inhaled Oxygen Concentration - - Weight 91.4 kg (201 lb 9.6 oz) 10/18/2021 1:15 P M CDT Height 177.8 cm (5' 10) 10/18/2021 1:15 PM CDT Body Mass Index 28.93 10/18/2021 1:15 PM CDT Plan of Treatment Health Maintenance Due Date Last Done Comments DTAP/TDAP/TD VACCINES (1 - Tdap) 07/13/1975 PNEUMOCOCCAL VACCINE 50+ YEARS (1 of 2 - PCV) 07/12/18 76 COLORECTAL SCREENING 2001 Colorectal Cancer Screening 2001 FIT-DNA Q 3 years 2001 FIT/FOBT Q 1 year 2001 Flex Sig/CT Colonography Q 5 years 2001 ZOSTER VACCINE (1 of 2) 2006 INFLUENZA VACCINE (#1) 2024 RSV VACCINE (60+ or ) (1 - 1-dose 75+ series) 07/13/2031 Insurance [facility] MEDICAID MEDICARE PART A AND B
--- OUTSIDE RECORDS SUMMARY | 2024-10-14 14:41 | XMS_ITS | Referral Summary ---
Author Organization [facility] Address [address] [place] [address] Care Team Providers Care Plant Utility Person Name Role Phone Tramaine Rodriguez MD Primary Care Provider [phone] Encounters Date Type Department Care Team Description 10/03/2024 Telephone [facility] Pulmonology [address] [place] [address] Pop Cruz MD 08/26/2024 1:45 PM CDT Office Visit [facility] Orthopedics and Sports Medicine [address] [place] [address] Kim Schmitt PA Primary osteoarthritis of both knees (Primary Dx) from Last 3 Months Allergies Active Allergy Reactions Criticality Noted Date [...] (12/08/2020): Added automatically from request for surgery [id number] Derangement of lateral meniscus of right knee Overview (12/08/2020): Added automatically from request for surgery [id number] Primary osteoarthritis of right knee 12/08/2020 Overview (12/08/2020): Added automatically from request for surgery [id number] Abnormal finding on lung imaging 09/04/2019 Environmental and seasonal allergies 09/04/2019 Abnormal EKG 01/23/2019 Tobacco dependence syndrome 01/23/2019 Hypertension 01/23/2019 Knee pain 01/23/2019 Solitary pulmonary nodule 01/23/2019 Social History Tobacco Use Types Packs/Day Years [...] on file 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 Gender Identity Male 07/05/2021 11:46 AM CDT Sexual Orientation Straight 07/05/2021 11 :46 AM CDT Last Filed Vital Signs Vital Sign Reading [...] 05/21/2024 2:14 PM CDT Plan of Treatment Not on file Procedures Procedure Name Priority Date/Time Associated Diagnosis Comments [place] ARTHROCENTESIS ASPIR&/INJ MAJOR JT/BURSA W/O US Routine 08/26/2024 1:45 PM CDT Primary osteoarthritis of both knees [place] ARTHROCENTESIS ASPIR&/INJ MAJOR JT/BURSA W/O US Routine 08/26/2024 1:45 PM CDT Primary osteoarthritis of both knees CT LUNG CANCER SCREENING Schedule Routine, Read Routine (OP Routine) 09/29/2023 2:59 PM CDT Cigarette nicotine dependence without complication from Last 3 Months or Most Recently Relevant to Health Maintenance Results * [place] ARTHROCENTESIS ASPIR&/INJ MAJOR JT/BURSA W/O US (08/26/2024 1:45 PM CDT) Kim Brown PA - 08/26/2024 1:45 PM CDT Kim [...] IN CLINIC/BEDSIDE ORDERABL ES Final Result * [place] ARTHROCENTESIS ASPIR&/INJ MAJOR JT/BURSA W/O US (08/26/2024 1:45 PM CDT) Kim Brown PA - 08/26/2024 1:45 PM CDT Kim [...] Magalys Cole D.O. PS T: Report ID: [id number] Reading Location: [id number] Procedure Note Magalys Cole, DO - 10/02/2023 EXAM DESCRIPTION: CT LUNG [...] Magalys Cole D.O. PS T: Report ID: [id number] Reading Location: [id number] Pop Cruz MD IMG CT PROCEDURES Final Resul t from Last 3 Months or Most Recently Relevant to Health Maintenance Insurance [facility] MEDICARE [facility] MEDICARE Care Teams Plant Utility Person Relationship Specialty Start Date End Date Tramaine Rodriguez MD PCP - General Emergency Medicine 07/22/20
--- OUTSIDE RECORDS SUMMARY | 2024-10-14 14:41 | XMS_ITS | Clinical Summary ---
Author Organization [facility] [employer] Address [address] [facility] [place] [address] Care Team Providers Care Fire Fighter Name Role Phone Tramaine Rodriguez MD Primary Care Provider [phone] Source Comments [facility] [employer],non-owned Affiliates and Associated Physician Practices is amultiple site organization consisting of ambulatory clinics and hospital sitesin [place], [place], [place] and [place]. This disclosure is being madepursuant to the Care Everywhere program and may not contain all information available regarding this patient. Last updated 17.[facility] [employer] Allergies Active Allergy Reactions Criticality Noted Date Comments Lisinopril Swelling High 01/23/2019 Medications * Be aware that medications may not be up to date on this document. Alwaysverify current medications with the patient. montelukast (SINGULAIR) 10 MG tablet 2 Active hydroCHLOROthia zide (HYDRODIURIL) 12.5 MG 2 Active amLODIPine (NORVASC) 10 MG tablet 2 Active vitamin D, ergocalciferol, (DRISDOL) 1.25 MG (28449 UT) capsule TAKE 1 CAPSULE BY MOUTH WEEKLY 2 Active triamcinolone acetonide (Kenalog) 0.1 % cream 3 Active omeprazole (PriLOSEC) 20 MG capsule 3 Active montelukast (Singulair) 10 MG tablet Take 1 (one) tablet by mouth 2 Active clotrimazole (Lotrimin AF) 1 % cream 1 Active Symbicort 80-4.5 MCG/ACT inhaler INHALE 2 PUFFS BY MOUTH TWICE DAILY NEEDED FOR COUGHING OR WHEEZING OR SHORTNESS OF BREATH. RINSE MOUTH WITH WATER AFTER USE. DO NOT SWALLOW 2 Active aspirin EC (Ecotrin) 81 MG tablet Take 1 (one) tablet by mouth once daily Active amLODIPine (Norvasc) 10 MG tablet 2 Active ketoconazole (Nizoral) 2 % creamIndication s:Tinea pedis of both feet Apply to feet twice daily as needed for rash and dry flaky skin. 30 days supply. 60 g 5 3 Active ketoconazole (Nizoral) 2 % shampooIndicati ons:Seborrheic keratosis Apply to wet hair, leave on for 3-5 minutes, then rinse; three times weekly. 30 days supply 120 mL 5 3 Active atorvastatin (Lipitor) 10 MG tablet 4 Active fenofibrate micronized (Lofibra) 134 MG capsule TAKE 1 CAPSULE BY MOUTH DAILY WITH A MEAL Active Active Problems No known active problems Encounters Date Type Department Care Team Description 09/26/2024 1:30 PM CDT Office Visit [facility] - Dermatology [address] [place] [phone] Nazia Davila MD Actinic keratosis (Primary Dx); Scar; Seborrheic keratosis; Lentigines; Multiple benign melanocytic nevi of upper and lower extremities and trunk; Other seborrheic dermatitis 09/26/2024 Travel from Last 3 Months Social History Tobacco Use Types Packs/Day Years Used Date Smoking Tobacco: Every Day Cigarettes Smokeless Tobacco: Never Sex and Gender Information Value Date Recorded Sex Assigned at Not on file 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 Gender Identity Not on file Sexual Orientation Not on file Plan of Treatment Upcoming Encounters Date Type Department Care Team (Late st Contact Info) Description 04/04/2025 1:00 PM TIRE MOLD TESTER [facility] [address] [place] [phone] Nazia Davila MD [address] [place] [address] [address] [place] [address] Health Maintenance Due Date Last Done Comments COLOGUARD (AGES 45-75) - COL ON CA SCREENING 1956 COLON MONITORING 1956 COLONOSCOPY - COLON CA SCREENING 1956 CT COLONOGRAPHY - COLON CA SCREENING 1956 Colorectal Cancer Screening 1956 FIT - COLON CA SCREENING 1956 FLEX SIG - COLON CA SCREENING 1956 MEDICARE AWV 12 MONTHS 1956 HEPATITIS C SCREENING 07/08/1974 DTAP/TDAP/TD VACCINES (1 - Tdap) 07/13/1975 PNEUMOCOCCAL VACCINE 50+ (1 of 2 - PCV) 07/13/1975 ZOSTER VACCINE (1 of 2) 2006 AAA SCREENING 2021 COVID-19 VACCINE (1 - 2023-2 5 season) 2023 DEPRESSION SCREENING 03/13/2024 INFLUENZA VACCINE (#1) 2024 Respiratory Syncytial Virus (RSV) Vaccine Pt: or over 60 yrs (1 - 1-dose 75+ series) 07/13/2031 HEPATITIS B VACCINE Aged Out No longe r eligible based on patient's age to complete this topic HIB VACCINE Aged Out No longer eligi ble based on patient's age to complete this topic HPV VACCINE Aged Out No longer eligi ble based on patient's age to complete this topic MENINGOCOCCAL (Group B) VACC INE SHARED DECISION-MAKING Aged Out No longer eligibl e based on patient's age to complete this topic MENINGOCOCCAL GROUPS A/C/Y/W VACCINE Aged Out No longer eligible b ased on patient's age to complete this topic Procedures Procedure Name Priority Date/Time Associated Diagnosis Comments [place] DESTROY PREMALIG LESION, 2-14 Routine 09/26/2024 1:35 PM CDT Actinic keratosis [place] DESTROY PREMALIG LESION, 1ST LESION Routine 09/26/2024 1:35 PM CDT Actinic keratosis from Last 3 Months Results * [place] DESTROY PREMALIG LESION, 1ST LESION, [place] DESTROY PREMALIG LESION, 2-14 (09/26/2024 1:35 PM CDT) Narrative Nazia Davila MD - 09/26/2024 1:35 PM CDT Nazia Davila MD 09/26/2024 1:35 PM Liquid nitrogen was applied for 10-12 seconds to the 3 Aks and the expected blistering or scabbing reaction explained. Do not pick at the area. Patient reminded to expect hypopigmented scars from the procedure. Return if lesion fails to fully resolve. us Nazia Davila MD PROCEDURE/MINOR SURGIC AL ORDERABLES Final Result from Last 3 Months Insurance MEDICARE [id number] [place] [id number] Care Teams Fire Fighter Relationship Specialty Start Date End Date Tramaine Rodriguez MD [address] [place] [address] PCP - General 06/14/21
--- OUTSIDE RECORDS SUMMARY | 2024-10-14 15:42 | XMS_ITS | Clinical Summary ---
Author Organization [facility] [employer] Address [address] [facility] [place] [address] Care Team Providers Care Service Technician Copier Name Role Phone Unavailable Primary Care Provider [...] (1 - 1-dose 75+ series) 07/13/2031 Insurance [facility] PL[facility] MEDICAID MEDICARE PART A AND B
--- OUTSIDE RECORDS SUMMARY | 2024-10-14 15:42 | XMS_ITS | Clinical Summary ---
Author Organization [facility] Address [address] [place] [address] Care Team Providers Care Dictaphone Transcriber Name Role Phone Tramaine Rodriguez MD Primary Care Provider [phone] Allergies Active Allergy Reactions Criticality Noted Date [...] (12/08/2020): Added automatically from request for surgery [id number] Derangement of lateral meniscus of right knee Overview (12/08/2020): Added automatically from request for surgery [id number] Primary osteoarthritis of right knee 12/08/2020 Overview (12/08/2020): Added automatically from request for surgery [id number] Abnormal finding on lung imaging 09/04/2019 Environmental and seasonal allergies 09/04/2019 Abnormal EKG 01/23/2019 Tobacco dependence syndrome 01/23/2019 Hypertension 01/23/2019 Knee pain 01/23/2019 Solitary pulmonary nodule 01/23/2019 Encounters Date Type Department Care Team Description 10/03/2024 Telephone [facility] Pulmonology [address] [place] [address] Pop Cruz MD 08/26/2024 1:45 PM CDT Office Visit [facility] Orthopedics and Sports Medicine [address] [place] [address] Kim Schmitt, PA Primary osteoarthritis [...] on file 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 Gender Identity Male 07/05/2021 11:46 AM CDT [...] Procedure Name Priority Date/Time Associated Diagnosis Comments NM ARTHROCENTESIS ASPIR&/INJ MAJOR JT/BURSA W/O US Routine 08/26/2024 1:45 PM CDT Primary osteoarthritis of both knees NM ARTHROCENTESIS ASPIR&/INJ MAJOR JT/BURSA W/O US Routine 08/26/2024 1:45 PM CDT Primary osteoarthritis of both knees CT LUNG CANCER SCREENING Schedule Routine, Read Routine (OP Routine) 09/29/2023 2:59 PM CDT Cigarette nicotine dependence without complication from Last 3 Months or Most Recently Relevant to Health Maintenance Results * NM ARTHROCENTESIS ASPIR&/INJ MAJOR JT/BURSA W/O US (08/26/2024 [...] procedure well with no immediate complications us Kmi WRIGHT IN CLINIC/BEDSIDE ORDERABL ES Final Result * NM ARTHROCENTESIS ASPIR&/INJ MAJOR JT/BURSA W/O US (08/26/2024 [...] signed by Magalys RAMIREZ T: Report ID: [id number] Reading Location: [id number] Procedure Note Kelsey Magalys John, DO - [...] Magalys Cole D.O. PS T: Report ID: [id number] Reading Location: [place] [address] Pop Cruz MD IMG CT PROCEDURES Final Resul t from Last 3 Months or Most Recently Relevant to Health Maintenance Insurance [facility] MEDICARE [facility] MEDICARE Care Teams Dictaphone Transcriber Relationship Specialty Start Date End Date Tramaine Rodriguez MD PCP - General Emergency Medicine 07/22/20
--- OUTSIDE RECORDS SUMMARY | 2024-10-14 15:42 | XMS_ITS | Referral Summary ---
Author Organization [facility] Address [address] [place] [address] Care Team Providers Care Paleontology Teacher Name Role Phone Tramaine Rodriguez MD Primary Care Provider [phone] Encounters Date Type Department Care Team Description 10/03/2024 Telephone [facility] Pulmonology [address] [place] [address] Pop Cruz MD 08/26/2024 1:45 PM CDT Office Visit [facility] Orthopedics and Sports Medicine [address] [place] [address] Kim Schmitt PA Primary osteoarthritis [...] (12/08/2020): Added automatically from request for surgery [id number] Derangement of lateral meniscus of right knee Overview (12/08/2020): Added automatically from request for surgery [id number] Primary osteoarthritis of right knee 12/08/2020 Overview (12/08/2020): Added automatically from request for surgery [id number] Abnormal finding on lung imaging 09/04/2019 Environmental [...] on file 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 Gender Identity Male 07/05/2021 11:46 AM CDT [...] Procedure Name Priority Date/Time Associated Diagnosis Comments [place] ARTHROCENTESIS ASPIR&/INJ MAJOR JT/BURSA W/O US Routine 08/26/2024 1:45 PM CDT Primary osteoarthritis of both knees [place] ARTHROCENTESIS ASPIR&/INJ MAJOR JT/BURSA W/O US Routine 08/26/2024 1:45 PM CDT Primary osteoarthritis of both knees CT LUNG CANCER SCREENING Schedule Routine, Read Routine (OP Routine) 09/29/2023 2:59 PM CDT Cigarette nicotine dependence without complication from Last 3 Months or Most Recently Relevant to Health Maintenance Results * [place] ARTHROCENTESIS ASPIR&/INJ MAJOR JT/BURSA W/O US (08/26/2024 [...] IN CLINIC/BEDSIDE ORDERABL ES Final Result * [place] ARTHROCENTESIS ASPIR&/INJ MAJOR JT/BURSA W/O US (08/26/2024 [...] Magalys Cole D.O. PS T: Report ID: [id number] Reading Location: [id number] Procedure Note Magalys Cole, DO - 10/02/2023 [...] Magalys Cole D.O. PS T: Report ID: [id number] Reading Location: [id number] Pop Cruz MD IMG CT PROCEDURES Final Resul t from Last 3 Months or Most Recently Relevant to Health Maintenance Insurance [place] [address] MEDICARE [facility] MEDICARE Care Teams Paleontology Teacher Relationship Specialty Start Date End Date Tramaine Rodriguez MD PCP - General Emergency Medicine 07/22/20
--- OUTSIDE RECORDS SUMMARY | 2024-10-14 15:42 | XMS_ITS | Clinical Summary ---
Author Organization [facility] [employer] Address [address] [place] [address] Care Team Providers Care Board Handler Name Role Phone Tramaine Rodriguez MD Primary Care Provider [phone] Source Comments [facility] [employer],non-owned Affiliates and Associated Physician Practices is amultiple site organization consisting of ambulatory clinics and hospital sitesin [place], [place], [place] and [place]. This disclosure is being madepursuant to the Care Everywhere program and may not contain all information available regarding this patient. Last updated 17.[facility] [employer] Allergies Active Allergy Reactions Criticality Noted Date Comments Lisinopril Swelling High 01/23/2019 Medications * Be aware that medications may not be up to date on this document. Alwaysverify current medications with the patient. 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 Gender Identity Not on file Sexual Orientation Not on file Plan of Treatment Upcoming Encounters Date Type Department Care Team (Late st Contact Info) Description 04/04/2025 1:00 PM COUNTRY PRINTER APPRENTICE [facility] [address] [place] [phone] Nazia Davila MD [address] [place] [address] [address] [place] [address] Health Maintenance Due Date Last Done Comments [...] Procedure Name Priority Date/Time Associated Diagnosis Comments [place] DESTROY PREMALIG LESION, 2-14 Routine 09/26/2024 1:35 PM CDT Actinic keratosis [place] DESTROY PREMALIG LESION, 1ST LESION Routine 09/26/2024 1:35 PM CDT Actinic keratosis from Last 3 Months Results * [place] DESTROY PREMALIG LESION, 1ST LESION, [place] DESTROY PREMALIG LESION, 2-14 (09/26/2024 1:35 PM [...] Result from Last 3 Months Insurance MEDICARE [address] [place] [id number] Care Teams Board Handler Relationship Specialty Start Date End Date Tramaine Rodriguez MD [address] [address] [place] [address] PCP - General 06/14/21
--- OUTSIDE RECORDS SUMMARY | 2024-10-14 15:42 | XMS_ITS | Clinical Summary ---
Author Organization [facility] Address [address] [place] [address] Care Team Providers Care Bottle House Quality Control Technician Name Role Phone Tramaine Rodriguez MD Primary Care Provider [phone] Allergies Active Allergy Reactions Criticality Noted Date Comments Lisinopril Swelling High 09/04/2019 Medications hydroCHLOROthiaz alberto 12.5 MG tablet 08/07/2019 Active polyethylene glycol-electroly savita 420 g solution TK UTD BY OFFICE 10/04/2018 Active promethazine 25 MG tablet TK 1/2 T PO Q 6 H 10/04/2018 Active erythromycin 5 MG/GM (0.5%) ophthalmic ointment ROXANA AEY Q 4 H 11/22/2018 Active vitamin D2, ergocalciferol, 14475 UNITS capsule TK 1 C PO WEEKLY [...] to complete this topic Insurance Care Teams Bottle House Quality Control Technician Relationship Specialty Start Date End Date Tramaine Rodriguez MD [facility] [address] [address] PCP - General FAMILY PRACTICE 05/08/19
[2024-10-14 15:45] VITALS: BP 158/76; PULSE 92; RESP 16; O2SAT 99
[2024-10-14 15:52] LABS: Hematocrit 50.8 % (42.0-52.0); Hemoglobin 17.6 g/dL (14.0-18.0); Immature Granulocyte Percent A 1.1 % (0-0.5); Lymphocytes Absolute Auto 1.69 K/mm3 (0.9-3.2); Mean Corpuscular HGB Conc 34.6 g/dl (32-36); Mean Corpuscular Hemoglobin 31.9 pg (26-34); Mean Corpuscular Volume 92.0 fl (80-100); Nucleated Red Blood Cells Absolute Auto 0.000 K/mm3 (0.0-0.012); Nucleated Red Blood Cells Perc 0.0 % (0.0-0.2); Platelet Count Result 467 k/mm3 (150-375); Red Blood Count 5.52 M/mm3 (4.6-6.20); White Blood Count 11.1 K/mm3 (4.5-10.0)
[2024-10-14 16:06] LABS: Alanine Aminotransferase 89 U/L (6-50); Albumin Level 4.8 g/dL (3.5-5.1); Alkaline Phosphatase 110 U/L (38-126); Anion Gap 14 mmol/L (4-12); Aspartate Amino Transferase 67 U/L (17-59); Bilirubin,Total 0.6 mg/dL (0.2-1.3); Blood Urea Nitrogen 5 mg/dL (9-20); CRP 0.9 mg/dL (<1.0); Calcium 9.2 mg/dL (8.4-10.2); Carbon Dioxide 23 mmol/L (22-30); Chloride 98 mmol/L (98-107); Estimated CRCL calculation 90 ml/min; Estimated Glomerular Filt Rate > 60; Glucose 89 mg/dL (65-110); Potassium 3.3 mmol/L (3.4-5.0); Sodium 135 mmol/L (137-145); Total Protein 9.1 g/dL (6.3-8.2)
[2024-10-14 16:30] VITALS: BP 148/81; PULSE 92; RESP 16; O2SAT 97
--- NOTE | 2024-10-14 16:48 | ED_ITS ---
HPI - Extremity Injury (Lower) General Chief Complaint: Extremity Injury, Lower Stated Complaint: possible infection to bilateral knees, from pcp Time Seen by Provider: 10/14/24 15:20 Source: patient Mode of arrival: ambulatory Limitations: no limitations History of Present Illness HPI Narrative: 69-year-old with a history of hypertension, hyperlipidemia here with the complaints of bilateral leg pain. Patient states that he fell a week ago and scraped his legs. This morning he was at his primary doctor's office were later referred him to the ER for possible infection. Patient denies having any fever or chills. Patient states that he has been cleaning with peroxide and applying Neosporin complaint: knee injury Onset (ago): week(s) (1) Type of Injury: other (Abrasion) Place: home Severity: moderate Relieving factors: nothing Exacerbating factors: nothing Context: fall Other symptoms: none Related Data Home Medications ?Medication ?Instructions ?Recorded ?Confirmed ?Last Taken ?Type amlodipine 10 mg tablet 10 mg PO DAILY 12/18/20 06/17/21 06/10/21 06:00 History hydrochlorothiazide 12.5 mg tablet 12.5 mg PO DAILY 12/18/20 06/17/21 06/09/21 History Allergies Allergy/AdvReac Type Severity Reaction Status Date / Time lisinopril Allergy Severe Swelling Verified 10/14/24 14:34 Review of Systems 2 Review of Systems: All systems reviewed & are unremarkable except as noted in HPI and below Constitutional: Constitutional: Reports no additional constitutional complaints Eyes: Eyes: Reports no additional eye complaints ENT: Reports system reviewed and no additional complaints, except as documented Cardiovascular: Cardiovascular: Reports no additional cardiovascular complaints Respiratory: Respiratory: Reports no additional respiratory complaints Gastrointestinal: Gastrointestinal: Reports no additional gastrointestinal complaints Musculoskeletal: Musculoskeletal: Reports as per HPI Integumentary/Breasts: Skin/Breast: Reports as per HPI Psychiatric: Psychiatric: Reports no additional psychiatric complaints [facility] Past Medical History Medical History Smoker ETOH abuse Arthritis HTN (hypertension) Leukoplakia, tongue Social History Social History Smoking packs per day: 0.5 Smoking cigarettes per day: 10.0 Years smoked: 50 Smoking pack-years: 25.00 Smoking status: Current every day smoker Tobacco type: cigarettes Alcohol intake: current Drinks per week: 18 Alcohol use details: BEER Substance use: never Substance use type: does not use Living arrangements: with family Additional living arrangements comments: MOM Spiritual care concerns: No Exam 2 Narrative: GENERAL: Well-appearing, well-nourished, and in no acute distress. HEAD: Normocephalic, atraumatic. EYES: PERRLA and EOMI. ENT: Nares clear, no rhinorrhea or epistaxis. Mucous membranes moist. NECK: Supple. CHEST: Clear to auscultation. No respiratory distress. HEART: Regular rate and rhythm. No murmur heard. Normal peripheral pulses. EXTREMITIES: Normal range of motion. No edema. As well as old abrasions below the knee. There is no joint effusion. Normal ROM. No calf tenderness. Mild erythema around the abrasion. SKIN: Warm, dry, no rash. NEURO: No focal deficits. Alert and oriented x3. PSYCH: Normal mood and affect. Course Vital Signs Vital signs: Vital Signs Temperature 36.9 C 10/14/24 14:35 Pulse Rate 109 H 10/14/24 14:35 Respiratory Rate 16 10/14/24 14:35 Blood Pressure 155/78 H 10/14/24 14:35 Pulse Oximetry 97 10/14/24 14:35 Oxygen Delivery Room Air 10/14/24 14:35 Temperature 36.9 C 10/14/24 14:35 Pulse Rate 109 H 10/14/24 14:35 Respiratory Rate 16 10/14/24 14:35 Blood Pressure 155/78 H 10/14/24 14:35 Pulse Oximetry 97 10/14/24 14:35 Oxygen Delivery Room Air 10/14/24 14:35 MDM - Extremity Injury (Lower) Differential Diagnosis Differential diagnosis: Likely other (Cellulitis, wound infection.) Medical Records Attestation: I reviewed the patient's medical records. Lab Data Attestation: I reviewed the patient's lab results. 10/14/24 15:44 10/14/24 15:44 Labs: Lab Results 10/14/24 Range/Units 15:44 WBC 11.1 H (4.5-10.0) K/mm3 RBC 5.52 (4.6-6.20) M/mm3 Hgb 17.6 (14.0-18.0) g/dL Hct 50.8 (42.0-52.0) % MCV 92.0 (80-100) fl MCH 31.9 (26-34) pg MCHC 34.6 (32-36) g/dl RDW 13.1 (11.5-14.5) % Plt Count 467 H (150-375) k/mm3 MPV 8.1 (7.4-10.4) fl Immature Gran % (Auto) 1.1 H (0-0.5) % Neut % (Auto) 72.2 (45.5-73.1) % Lymph % (Auto) 15.2 L (18.3-44.2) % Grainger % (Auto) 9.8 H (2.6-8.5) % Eos % (Auto) 1.2 (0-4.4) % Baso % (Auto) 0.5 (0.2-1.2) % Lymph # (Auto) 1.69 (0.9-3.2) K/mm3 Grainger # (Auto) 1.1 H (0.1-0.6) K/mm3 Eos # (Auto) 0.1 (0-0.3) K/mm3 Baso # (Auto) 0.1 (0.0-0.1) K/mm3 Abs Immat Gran (auto) 0.12 H (0.00-0.031) K/mm3 Absolute Neuts (auto) 8.0 H (1.3-6.7) K/mm3 Absolute Nucleated RBC 0.000 (0.0-0.012) K/mm3 Nucleated RBC % 0.0 (0.0-0.2) % Sodium 135 L (137-145) mmol/L Potassium 3.3 L (3.4-5.0) mmol/L Chloride 98 (98-107) mmol/L Carbon Dioxide 23 (22-30) mmol/L Anion Gap 14 H (4-12) mmol/L BUN 5 L (9-20) mg/dL Creatinine 0.81 (0.7-1.3) mg/dL Estim Creat Clear Calc 90 ml/min Estimated GFR > 60 (59 - ) Glucose 89 (65-110) mg/dL Calcium 9.2 (8.4-10.2) mg/dL Total Bilirubin 0.6 (0.2-1.3) mg/dL AST 67 H (17-59) U/L ALT 89 H (6-50) U/L Alkaline Phosphatase 110 (38-126) U/L C-Reactive Protein 0.9 (<1.0) mg/dL Total Protein 9.1 H (6.3-8.2) g/dL Albumin 4.8 (3.5-5.1) g/dL Discharge Plan Discharge Clinical Impression: Post-traumatic wound infection Patient Disposition: Home Condition: Stable Instructions: Acute Wounds (DC) Additional Instructions: Take antibiotic as prescribed I can apply Neosporin to the area please to not clean the wound with peroxide. Patient Language: Welsh Prescriptions: New doxycycline hyclate 100 mg capsule 100 mg PO BID Qty: 14 0RF No Action amlodipine 10 mg tablet 10 mg PO DAILY hydrochlorothiazide 12.5 mg tablet 12.5 mg PO DAILY hydrocodone-acetaminophen 5-325 mg tablet 1 tablet PO Q8H PRN (Reason: pain) Qty: 20 0RF Follow-up/Referrals: Tramaine Rodriguez MD [Primary Care Provider] - Time of Disposition: 16:58
[2024-10-14 17:25] VITALS: BP 166/84; PULSE 96; RESP 16; O2SAT 98
== END 2024-10-14 17:25 | disposition home or self-care (01) ==
PROVIDERS: Emergency Provider Family Medicine; PCP Emergency Medicine
DX: S80.212A Abrasion, left knee, initial encounter (principal); S80.211A Abrasion, right knee, initial encounter; L08.9 Local infection of the skin and subcutaneous tissue, unspecified; I10 Essential (primary) hypertension; E78.5 Hyperlipidemia, unspecified; M19.90 Unspecified osteoarthritis, unspecified site; F17.210 Nicotine dependence, cigarettes, uncomplicated; W19.XXXA Unspecified fall, initial encounter
CPT/HCPCS: 36415; 80053; 85025; 86140; 99283